=== PATIENT | female | born 1940 | race Caucasian/White ===

== ENCOUNTER 2022-02-26 14:03 | Emergency (ER) | payer MEDICARE, OTHER, SELFPAY ==
[2022-02-26 15:25] VITALS: BP 169/62; PULSE 55; RESP 16; TEMP 36.3; O2SAT 96
--- NOTE | 2022-02-26 17:07 | ED.URI ---
HPI - URI/Sore Throat General Chief Complaint: Upper Respiratory Infection Stated Complaint: Congestion/Cough Time Seen by Provider: 02/26/22 16:25 Source: patient, RN notes reviewed and old records reviewed Mode of arrival: ambulatory Limitations: no limitations History of Present Illness HPI Narrative: 81-year-old female who presents to [facility] with complaints of head congestion, postnasal drainage some clear yellowish nasal drainage extreme fatigue with cough and body aches for the past 6 days. Patient has been taking cold medication, Flonase and tussin cough syrup. Patient reports that cough is frequent and non productive, reports no fever. Patient stats that she has been COVID vaccinated. MD elicited complaint: cough, rhinorrhea, nasal congestion and other (body aches) Onset (ago): day(s) (6) Pain scale (0-10): 4 Treatments prior to arrival: cold medicine and other (flonase, tussin cough syrup) Related Data Home Medications Medication Instructions Recorded Confirmed aspirin 81 mg capsule 81 mg PO DAILY 02/26/22 02/26/22 fluticasone propionate 50 See Rx Instructions .Route .COMPLEX 02/26/22 02/26/22 mcg/actuation nasal spray,suspension lisinopril 20 1 tablet PO BID 02/26/22 02/26/22 mg-hydrochlorothiazide 12.5 mg tablet metformin 500 mg tablet 500 mg PO BID 02/26/22 02/26/22 pravastatin 10 mg tablet 10 mg PO DAILY 02/26/22 02/26/22 Allergies Allergy/AdvReac Type Severity Reaction Status Date / Time amoxicillin Allergy Hives Verified 02/26/22 17:21 Review of Systems Review of Systems: CONSTITUTIONAL: Denies malaise, chills, sweats, or fever. EYES: Denies visual changes, redness, or discharge. ENT: Reports rhinorrhea, congestion, sinus pain,no otalgia, no sore throat. CARDIOVASCULAR: Denies chest pain, palpitations, or edema. RESPIRATORY: Reports cough.? Denies dyspnea. GASTROINTESTINAL: Denies abdominal pain, nausea, vomiting, diarrhea SKIN: Denies rash or itching. MUSCULOSKELETAL: Reports myalgia. NEUROLOGIC: Denies headache. All systems reviewed & are unremarkable except as noted in HPI and below PMFSH Past Medical History Medical History (Updated 03/05/22 @ 09:23 by Alexandrea Gimenez NP) Anxiety Arthritis Diabetes Hypertension Osteopenia Pneumonia Surgical History Surgical History (Updated 02/26/22 @ 17:18 by Alexandrea Gimenez NP) H/O cataract removal with insertion of prosthetic lens bilateral H/O: hysterectomy Hx of appendectomy Social History Social History (Updated 02/26/22 @ 17:18 by Alexandrea Gimenez NP) Smoking status: Never smoker Gender identity (if verbalized by the patient): Female Comments At time of signature, agree with nursing past medical, surgical, social and family history. There is no relevant family history pertinent to the presenting complaint Exam Narrative: GENERAL: Well-appearing, well-nourished, and in no acute distress. HEAD: Normocephalic EYES: PERRLA, conjunctivae clear ENT: Nares clear, turbinates edematous and erythematous, clear to light yellow discharge. Mucous membranes moist. TM pearly jimenez with dull light reflex bilaterally; no tragal tenderness. Oropharynx erythematous without lesions. Tonsils not enlarged and without exudate, no drooling, no hoarseness, no trismus, uvula midline. NECK: Supple. No lymphadenopathy CHEST: Clear to auscultation, breath sounds equal. No wheezing, rhonchi, rales, or stridor. No respiratory distress, speaks in full sentences.dry cough noted SAO2 96% on room air HEART: Regular rate and rhythm. No murmur heard. SKIN: Warm, dry, no rash. NEURO: Alert and oriented x3. PSYCH: Normal mood and affect Course Course Emergency Course: Patient is aware of diagnosis, understands and agrees to treatment plan.? Anticipatory guidance given.? Patient agrees to follow-up as directed and is aware of reasons to seek care at the emergency department. Portions of this record may h
== END 2022-02-26 17:25 | disposition home or self-care (01) ==
PROVIDERS: Emergency Provider Registered Nurse; PCP Internal Medicine
DX: J06.9 Acute upper respiratory infection, unspecified (principal); R05.1 Acute cough; Z20.822 Contact with and (suspected) exposure to COVID-19; M19.90 Unspecified osteoarthritis, unspecified site; E11.9 Type 2 diabetes mellitus without complications; I10 Essential (primary) hypertension; M85.80 Other specified disorders of bone density and structure, unspecified site; Z98.42 Cataract extraction status, left eye; Z98.41 Cataract extraction status, right eye; Z96.1 Presence of intraocular lens
CPT/HCPCS: 87426; 87804; 99213; C9803; G0463